=== PATIENT | male | born 1995 | race Two or more races ===

== ENCOUNTER 2024-03-14 21:54 | Inpatient (IN) | payer OTHER ==
[~2024-03-14] VITALS: Ht 170.2 cm; Wt 76.2 kg
[2024-03-14] MEDS ORDERED: RIFA300C62 PO (22:37)
[2024-03-14] MEDS ORDERED: SERT-158 PO (22:37)
[2024-03-14] MEDS ORDERED: ISON300T17 PO (22:37)
[2024-03-14] MEDS ORDERED: VITA-328 PO (22:37)
[2024-03-14 23:39] LABS: ANION GAP 4 mmol/L (8-16); CALCIUM, TOTAL 8.5 mg/dL (8.8-10.5); CARBON DIOXIDE 32 mmol/L (22-29); CHLORIDE 103 mmol/L (98-107); CREATININE 0.81 mg/dL (0.60-1.30); GLOMERULAR FILTR. RATE CALC > 60 mL/min (>60); GLUCOSE,RANDOM 81 mg/dL (70-110); POTASSIUM 4.2 mmol/L (3.5-5.1); SODIUM SERUM 139 mmol/L (136-145); UREA NITROGEN, BLOOD 14 mg/dL (7-18)
[2024-03-14 23:45] LABS: ALANINE AMINOTRANSFERASE 17 U/L (12-78); ALBUMIN 3.4 g/dL (3.4-5.0); ALKALINE PHOSPHATASE 111 U/L (46-116); ASPARTATE AMINOTRANSFERASE 17 U/L (15-37); BILIRUBIN,TOTAL 0.3 mg/dL (0.1-1.0); LIPASE 22 U/L (16-77); TOTAL PROTEIN, SERUM 6.4 g/dL (6.4-8.2)
[2024-03-14 23:48] LABS: BASOPHILS % (AUTO) 0.6 % (0.0-2.0); EOSINOPHILS % (AUTO) 4.2 % (1.0-6.0); HEMATOCRIT 46.4 % (41-53); HEMOGLOBIN 15.6 g/dL (13.5-17.5); LACTIC ACID 0.6 mmol/L (0.4-2.0); LYMPHOCYTES # (AUTO) 1.4 K/uL (1.0-4.8); LYMPHOCYTES % (AUTO) 26.8 % (22.0-44.0); MEAN CORPUSCULAR HEMOGLOBIN 28.7 pg (26.0-34.0); MEAN CORPUSCULAR HGB CONC 33.7 G/dL (31.0-37.0); MEAN CORPUSCULAR VOLUME 85 fL (80-100); MONOCYTES # (AUTO) 0.5 K/uL (0.1-1.0); MONOCYTES % (AUTO) 9.8 % (2.0-9.0); NEUTROPHILS % (AUTO) 58.6 % (40.0-70.0); PLATELET COUNT (AUTO) 193 K/uL (150-450); RED BLOOD CELL COUNT(AUTO) 5.45 MIL/uL (4.50-5.90); RED CELL DISTRIBUTION WIDTH 13.7 % (11.5-14.5); WHITE BLOOD COUNT (AUTO) 5.1 K/uL (4.5-11.0)
[2024-03-14] MEDS: SODIUM CHLORIDE 0.9% 2,000 ML IV ONE (23:59)
[2024-03-14] MEDS: MORPHINE SULFATE 4 MG/ML SYRINGE IVP ONE (23:59)
[2024-03-14] MEDS: ONDANSETRON HCL 4 MG/2 ML VIAL IVP ONE (23:59)
[2024-03-14] MEDS: IOHEXOL 9 MG/ML 500 ML BOTTLE PO ONE (23:59)
[2024-03-15 00:30] LABS: COVID AG,FIA SOURCE NASAL SWAB
[2024-03-15] MEDS ORDERED: SODIUM CHLORIDE 0.9% 100 ML ONE (00:36)
[2024-03-15] MEDS ORDERED: IOHEXOL 350 MG/ML 100 ML VIAL ONE (00:36)
[2024-03-15 00:56] LABS: SARS-COV2 (COVID) ANTIGEN,FIA Negative (Negative)
[2024-03-15] MEDS ORDERED: ALBUTEROL SULFATE 2.5 MG/0.5 ML NEB SOLUTION NEB PRN (01:30)
[2024-03-15] MEDS ORDERED: IPRATROPIUM BROMIDE 0.5 MG/2.5 ML NEB SOLUTION NEB PRN (01:30)
[2024-03-15] MEDS ORDERED: MORPHINE SULFATE 2 MG/ML SYRINGE IVP PRN (01:30)
[2024-03-15] MEDS ORDERED: ZOLPIDEM TARTRATE 5 MG TABLET PO PRN (01:30)
[2024-03-15] MEDS ORDERED: ONDANSETRON HCL 4 MG/2 ML VIAL IVP PRN (01:30)
[2024-03-15] MEDS ORDERED: ACETAMINOPHEN 325 MG TABLET PO PRN (01:30)
[2024-03-15] MEDS ORDERED: MAGNESIUM HYDROXIDE SUSPENSION 30 ML UDCUP PO PRN (01:30)
[2024-03-15] MEDS ORDERED: BISACODYL 10 MG RECTAL RECTAL SUPPOSITORY PR PRN (01:30)
[2024-03-15] MEDS: DEXTROSE 5%-0.45% SODIUM CHL 1,000 ML IV ONE (02:52)
[2024-03-15 03:26] LABS: APPEARANCE,URINE CLEAR (CLEAR); BILIRUBIN,URINE NEGATIVE (NEGATIVE); COLOR,URINE LIGHT YELLOW (YELLOW); GLUCOSE, URINE (UA) NEGATIVE (NEGATIVE); KETONES,URINE NEGATIVE (NEGATIVE); LEUKOCYTE ESTERASE ,URINE NEGATIVE (NEGATIVE); NITRATE,URINE NEGATIVE (NEGATIVE); OCCULT BLOOD,URINE NEGATIVE (NEGATIVE); PROTEIN,URINE NEGATIVE (NEGATIVE); SPECIFIC GRAVITIY, URINE 1.049 (1.003-1.030); UROBILINOGEN,URINE <=1.0 mg/dL (<=1.0)
[2024-03-15 03:31] LABS: BACTERIA,URINE Rare /HPF (None Seen); RBC,URINE None Seen /HPF (0-2); WBC,URINE 0-2 /HPF (0-5)
[2024-03-15 05:00] VITALS: BP 106/61; PULSE 58; RESP 19; TEMP 97.9; O2SAT 96
[2024-03-15 08:00] VITALS: BP 96/56; PULSE 63; RESP 18; TEMP 98.3
[2024-03-15] MEDS: PANTOPRAZOLE SODIUM 40 MG DR TABLET PO SCH (08:10)
[2024-03-15] MEDS: ISONIAZID 300 MG TABLET PO SCH (08:10)
[2024-03-15] MEDS: SERTRALINE HCL 50 MG TABLET PO SCH (08:11)
[2024-03-15] MEDS: VITAMIN B COMPLEX WITH C TABLET PO SCH (08:11)
[2024-03-15] MEDS: RIFAMPIN 300 MG CAPSULE PO SCH (08:11)
[2024-03-15] MEDS ORDERED: SODIUM CHLORIDE 3% 15 ML NEB SOLUTION NEB ONE (08:56)
[2024-03-15 12:21] VITALS: BP 97/66; PULSE 63; RESP 18; TEMP 98.3; O2SAT 99
[2024-03-15 20:04] VITALS: BP 113/65; PULSE 71; RESP 18; TEMP 98.5; O2SAT 97
[2024-03-16 00:05] VITALS: BP 98/63; PULSE 58; RESP 18; TEMP 98.3; O2SAT 96
[2024-03-16 02:07] LABS: HIV 1-2 SCREEN 4TH GEN W/RFLX Non Reactive (Non Reactive)
[2024-03-16 05:15] VITALS: BP 98/61; PULSE 59; RESP 18; TEMP 97.2; O2SAT 97
[2024-03-16 08:00] VITALS: BP 97/63; PULSE 60; RESP 18; TEMP 98.1; O2SAT 97
[2024-03-16 11:51] VITALS: BP 93/59; PULSE 70; RESP 18; TEMP 98.1; O2SAT 98
[2024-03-16 16:42] VITALS: BP 108/68; PULSE 76; RESP 18; TEMP 98.3; O2SAT 98
[2024-03-16 20:00] VITALS: BP 106/67; PULSE 72; RESP 18; TEMP 98.4; O2SAT 96
[2024-03-17] VITALS: BP 110/71; PULSE 64; RESP 20; TEMP 97.8; O2SAT 100
[2024-03-17 04:00] VITALS: BP 98/56; PULSE 64; RESP 18; TEMP 97.6; O2SAT 98
[2024-03-17 08:00] VITALS: BP 114/52; PULSE 61; RESP 18; TEMP 98.7; O2SAT 98
[2024-03-18 07:06] LABS: QUANTIFERON+, Nil Value 0.01 IU/mL; QUANTIFERON+,Mitogen Value >10.00 IU/mL; QUANTIFERON+,TB1 Antigen Value 1.69 IU/mL; QUANTIFERON+,TB2 Antigen Value 2.49 IU/mL; QUANTIFERON, TB GOLD PLUS Positive (Negative)
== END 2024-03-17 17:02 | DRG 446 ==
LOC: EMS 21:54 → EDH 03-15 01:34 → 5N 03-15 04:27 → 6S 03-17 11:12
PROVIDERS: ADMIT Hospitalist; ATTEND Hospitalist
DX: K80.20 Calculus of gallbladder without cholecystitis without obstruction (principal); K52.9 Noninfective gastroenteritis and colitis, unspecified; R10.10 Upper abdominal pain, unspecified; Z20.822 Contact with and (suspected) exposure to COVID-19; Z86.11 Personal history of tuberculosis; Z79.899 Other long term (current) drug therapy
CPT/HCPCS: 71260; 72193; 74160; 76700; 80048; 80076; 81001; 83605; 83690; 85025; 86480; 87389; 99285; J2270; J2405; J7030; J7050